=== PATIENT | male | born 1965 | race Caucasian/White ===

== ENCOUNTER 2019-12-18 07:26 | Outpatient (CLI) | payer OTHER, SELFPAY ==
--- NOTE | 2019-12-18 | ECHO_ITS ---
Patient Info Name: Cristi Hamilton Age: 54 years : 1965 Gender: Male Ht: 72 in Wt: 185 lbs BSA: 2.07 m2 HR: 48 bpm BP: 144 / 84 mmHg Technical Quality: Good Exam Date: 12/18/2019 8:02 AM Exam Location: [facility] Patient Status: Outpatient Admit Date: 12/18/2019 Staff Ordering Physician: Mukul Payan MD Head Inspector: Bill Rosas, AMANDA, RT Attending Provider: Mukul Payan MD Referring Physician: Schuyler SOLER; Exam Type: CA echo doppler color flow Study Info Indications I45.89 - Other specified conduction disorders Complete two-dimensional, color flow and Doppler transthoracic echocardiogram is performed. Summary 1. Left ventricular chamber dimension is normal. 2. Left ventricular systolic function is normal, estimated at 60-65%. 3. There is mildly increased left ventricular wall thickness. 4. The left ventricular diastolic function is normal. 5. E/e' 7 is not elevated. 6. Global longitudinal strain is normal at -17.4%. 7. There is mild mitral valve regurgitation. 8. There is mild tricuspid valve regurgitation. 9. No pulmonary hypertension, estimated pulmonary arterial systolic pressure is 29 mmHg. 10. Dilated inferior vena cava with >50% collapse upon inspiration consistent with elevated right atrial pressure, 10 mmHg. Left Ventricle E/e' 7 is not elevated. Global longitudinal strain is normal at -17.4%. Left ventricular chamber dimension is normal. Left ventricular systolic function is normal, estimated at 60-65%. There is mildly increased left ventricular wall thickness. The left ventricular diastolic function is normal. Right Ventricle Right ventricular chamber dimension is normal. Right ventricular systolic function is normal. Left Atria Left atrial chamber dimension is normal. Right Atria Right atrial chamber dimension is normal. Aortic Valve The aortic valve is trileaflet. There is no aortic valve stenosis. There is no aortic valve regurgitation. Pulmonic Valve There is no pulmonic regurgitation. Mitral Valve There is no mitral valve stenosis. There is mild mitral valve regurgitation. Tricuspid Valve There is mild tricuspid valve regurgitation. No pulmonary hypertension, estimated pulmonary arterial systolic pressure is 29 mmHg. Pericardium/Pleural There is no pericardial effusion. Inferior Vena Cava Dilated inferior vena cava with >50% collapse upon inspiration consistent with elevated right atrial pressure, 10 mmHg. Aorta The aortic root size at the sinus of Valsalva is normal. Left Ventricular Outflow Tract Name Value Normal LVOT 2D LVOT Diameter 2.1 cm LVOT Doppler LVOT Peak Gradient 5 mmHg LVOT Mean Gradient 2 mmHg LVOT VTI 23 cm LVOT VTI/AV VTI Ratio 0.9 LVOT Stroke Volume 82 ml LVOT CO 3.9 l/min LVOT CI 1.9 l/min/m2 Mitral Valve N
== END 2019-12-18 07:27 | disposition home or self-care (01) ==
PROVIDERS: PCP Internal Medicine; Visit Provider Internal Medicine
DX: I45.10 Unspecified right bundle-branch block (principal); I08.3 Combined rheumatic disorders of mitral, aortic and tricuspid valves
CPT/HCPCS: 93306

== ENCOUNTER 2019-12-20 07:25 | Outpatient (CLI) | payer OTHER, SELFPAY ==
--- NOTE | ~2019-12-20 | US_ITS ---
EXAMINATION: US abdomen limited DATE: 12/20/2019 07:56 INDICATION: Hepatic steatosis. TECHNIQUE: Multiple grayscale and Doppler ultrasound images of the abdomen were obtained. COMPARISON: Chest CT 08/12/2017 FINDINGS: The visualized portions of the head and body of the pancreas are normal. The liver is mariela l without focal lesion. No liver surface nodularity. There is normal flow in main portal vein. The ga llbladder is normal in size. No gallstones or gallbladder wall thickening. There was no sonographic M urphy sign. The common duct is normal and measures 2 mm. IMPRESSION: 1. Normal right upper quadrant ultrasound. Reviewed, dictated and finalized at location A. [employer]
== END 2019-12-20 07:26 | disposition home or self-care (01) ==
PROVIDERS: PCP Internal Medicine; Visit Provider Internal Medicine
DX: Z87.19 Personal history of other diseases of the digestive system (principal)
CPT/HCPCS: 76705

== ENCOUNTER 2022-11-13 14:49 | Emergency (ER) | payer OTHER, SELFPAY ==
--- NOTE | ~2022-11-13 | XR_ITS ---
EXAMINATION: XR chest 2V Exam Date/Time: 11/13/2022 18:45 [facility] HISTORY: cough NOTED HEMATURIA/PROSTATITIS Comparison: 04/17/2008. RESULT: Lines, tubes, and devices: None. Lungs and pleura: Low lung volumes with crowding, particularly in the lateral view. Cardiomediastinal silhouette: Stable. Other: No acute osseous or upper abdominal finding. IMPRESSION: No acute cardiopulmonary process. Reviewed, dictated and finalized at location K. [facility]
--- NOTE | ~2022-11-13 | CT_ITS ---
EXAMINATION: CT abdomen pelvis w con DATE: 11/13/2022 19:30 INDICATION: hematuria, dx with prostatitis, no symptom improve TECHNIQUE: Computed tomography (CT) of the abdomen and pelvis was performed with 100 mL Omnipaque-350 intravenous contrast. Automated exposure control and iterative reconstruction technique were employe d. The dose-length product was 908.36 mGy-cm. COMPARISON: None. FINDINGS: Lower thorax: Small hiatal hernia. Coronary artery calcifications. Dependent atelectasis, right great er than left. Liver: Normal. Biliary/Gallbladder: Gallbladder is normal. No bile duct dilation. Pancreas: No mass or duct dilation. Spleen: Normal. Adrenals:No mass. Kidneys: Bilateral hypodensities that are too small to characterize. Simple left midpole cyst. Mild b ilateral perinephric stranding. Mild bilateral pelviectasis. Otherwise, no hydronephrosis. Nonobstruc ting bilateral renal calculi. GI tract: No small or large bowel dilation. Normal appendix. Diverticulosis without diverticulitis. Mesentery/Peritoneum: No ascites, mass, or free air. Retroperitoneum: No mass. Atherosclerotic abdominal aortic and/or arterial calcifications. Pelvis: Bladder wall thickening. Prostatomegaly. Soft Tissues: Soft tissues and body wall unremarkable. Bones: No acute osseous finding. IMPRESSION: Esophagitis/gastritis. Bladder wall thickening which may be secondary to outlet compromise or cystiti s. Prostatomegaly. Reviewed, dictated and finalized at location K. [employer] IMPRESSION: Esophagitis/gastritis. Bladder wall thickening which may be secondary to outlet compromise or cystitis. Prostatomegaly.
[2022-11-13 15:03] VITALS: BP 156/73; PULSE 70; RESP 16; TEMP 36.6; O2SAT 98
--- NOTE | 2022-11-13 18:05 | ED.MALEGU ---
HPI - Male Genitourinary General Chief complaint: Urogenital-Male Stated complaint: flank pain Time Seen by Provider: 11/13/22 17:57 History of Present Illness HPI Narrative: 57-year-old male history of recently diagnosed prostatitis who is currently taking Cipro presents to the emergency room with dysuria and hematuria for 8 days. States symptoms have not improved. Was told by his PCP to come here for further evaluation for CT scan. Patient states he experiences prostatitis on multiple occasions, each time he is given ciprofloxacin. Patient also states that he has had a nonproductive cough for 4 weeks, has completed 2 courses of antibiotics and has not achieved any symptom improvement. States gets short of breath occasionally. Denies chest pain or difficulty breathing. Denies back pain, constipation difficulty with bowel movements. Related Data Home Medications Medication Instructions Recorded Confirmed aspirin 81 mg tablet,delayed 81 mg PO DAILY 12/06/19 05/26/22 release (Adult Low Dose Aspirin) omega-3 fatty acids 1,000 mg 1,000 mg PO BID 12/06/19 05/26/22 capsule (Fish Oil Concentrate) Allergies Allergy/AdvReac Type Severity Reaction Status Date / Time niacin Allergy Unknown Flushing Verified 11/13/22 22:31 Review of Systems Review of Systems: CONSTITUTIONAL: Denies fever, chills, or sweats. EYES: Denies visual changes, redness, or discharge. ENT: Denies rhinorrhea, congestion, sore throat, or otalgia. CARDIOVASCULAR: Denies chest pain, palpitations, or edema. RESPIRATORY: Reports cough GASTROINTESTINAL: Denies abdominal pain, nausea, vomiting, or diarrhea. GENITOURINARY: Reports dysuria and hematuria SKIN: Denies rash or itching. MUSCULOSKELETAL: Denies back pain, joint pain, or myalgia. NEUROLOGIC: Denies headache, numbness, dizziness, or weakness. PSYCHIATRIC: Denies anxiety or depression. [facility] Past Medical History Medical History Abnormal finding of blood chemistry, unspecified Anxiety Benign essential hypertension Blood glucose elevated BMI 25.0-25.9,adult BMI 26.0-26.9,adult BMI 27.0-27.9,adult BMI 28.0-28.9,adult Canker sores oral Elevated fasting glucose Elevated homocysteine Encounter for preventive health examination Encounter for routine adult health examination without abnormal findings Encounter for special screening examination for neoplasm of prostate Fatigue Gum inflammation Hearing loss History of fatty infiltration of liver Hx of skin malignancy Hyperlipidemia Hypersomnolence Light headed Mitral valve regurgitation On [facility] drug therapy HOLLIE (obstructive sleep apnea) Peripheral edema Preoperative clearance Prostate cancer screening RBBB (right bundle branch block) Rhinitis Sinus drainage SOB (shortness of breath) Suspected sleep apnea Unspecified diastolic (congestive) heart failure Viral syndrome Surgical History Surgical History S/P ear surgery Family History Family History Sibling Family history of Alzheimer's disease Acute myocardial infarction Patient's brother is in good health Mother Family history of renal failure Father Patient's father is in good health Other Family history of kidney disease Hypertension Social History Social History Smoking status: Never smoker Second hand tobacco smoke exposure: No Alcohol intake: never Exam Narrative: GENERAL: Well-appearing, well-nourished, no physical limitations, and in no acute distress. HEAD: Normocephalic, atraumatic. EYES: Conjunctivae normal, PERRLA and EOMI. CHEST: Clear to auscultation. No respiratory distress. No wheezes rales or rhonchi. HEART: Regular rate and rhythm. No murmur heard. Normal peripheral pulses. ABDOMEN: Soft, nontender, nondistended, normal a
[2022-11-13 18:20] VITALS: BP 122/86; PULSE 80; RESP 16; O2SAT 98
[2022-11-13 19:19] LABS: Estimated CRCL calculation 70 ml/min; Estimated Glomerular Filt Rate > 60
[2022-11-13 21:57] VITALS: BP 143/76; PULSE 77; RESP 16; O2SAT 98
[2022-11-13 22:34] LABS: Basophils Absolute Auto 0.1 K/mm3 (0.0-0.1); Basophils Percent Auto 0.7 % (0.2-1.2); Eosinophils Absolute Auto 0.1 K/mm3 (0-0.3); Eosinophils Percent Auto 1.8 % (0-4.4); Hematocrit 39.7 % (42.0-52.0); Hemoglobin 13.7 g/dL (14.0-18.0); Immature Granulocyte Absolute 0.19 K/mm3 (0.00-0.031); Immature Granulocyte Percent A 2.6 % (0-0.5); Lymphocytes Absolute Auto 1.87 K/mm3 (0.9-3.2); Mean Corpuscular HGB Conc 34.5 g/dl (32-36); Mean Corpuscular Hemoglobin 31.1 pg (26-34); Mean Corpuscular Volume 90.2 fl (80-100); Monocytes Absolute Auto 0.6 K/mm3 (0.1-0.6); Monocytes Percent Auto 8.6 % (2.6-8.5); Neutrophils Absolute Auto 4.3 K/mm3 (1.3-6.7); Neutrophils Percent Auto 60.3 % (45.5-73.1); Platelet Count Result 250 k/mm3 (150-375); Red Cell Distribution Width 12.6 % (11.5-14.5); White Blood Count 7.2 K/mm3 (4.5-10.0)
[2022-11-13 22:48] LABS: Appearance Urine Clear (Clear); Bacteria Urine Trace /hpf; Bilirubin Urine Negative (Negative); Blood Urine 2+ (Negative); Color Urine Yellow (Yellow); Glucose Urine UA Negative (Negative); Ketones Urine Negative (Negative); Leukocyte Esterase Ur Negative LEU/UL (Negative); Nitrate Urine Negative (Negative); Protein Urine Negative (Negative); Specific Grav Ur <= 1.005 (1.001-1.035); Squamous Epithelial Cell Urine Rare /hpf (Few); Urobilinogen Urine 0.2 mg/dL (<2.0); WBC Urine 31-50 /hpf; pH Urine 5.5 (5.0-9.0)
[2022-11-13 22:49] LABS: Add Urine Microscopic? YES
[2022-11-13 22:53] LABS: Alanine Aminotransferase 42 U/L (6-50); Albumin Level 4.1 g/dL (3.5-5.1); Alkaline Phosphatase 70 U/L (38-126); Anion Gap 8 mmol/L (8-16); Aspartate Amino Transferase 27 U/L (17-59); Bilirubin,Total 0.3 mg/dL (0.2-1.3); Blood Urea Nitrogen 18 mg/dL (9-20); Calcium 8.8 mg/dL (8.4-10.2); Carbon Dioxide 28 mmol/L (22-30); Chloride 101 mmol/L (98-107); Estimated CRCL calculation 85 ml/min; Estimated Glomerular Filt Rate > 60; Glucose 140 mg/dL (65-110); Potassium 3.5 mmol/L (3.4-5.0); Sodium 137 mmol/L (137-145)
[2022-11-13 23:53] VITALS: RESP 20
== END 2022-11-13 23:50 | disposition home or self-care (01) ==
PROVIDERS: Physician Assistant; Emergency Provider Nurse Practitioner Family; PCP Internal Medicine
DX: N41.0 Acute prostatitis (principal); R05.9 Cough, unspecified; E78.5 Hyperlipidemia, unspecified; I50.30 Unspecified diastolic (congestive) heart failure; I11.0 Hypertensive heart disease with heart failure; G47.33 Obstructive sleep apnea (adult) (pediatric); Z79.82 Long term (current) use of aspirin; K20.90 Esophagitis, unspecified without bleeding; K29.70 Gastritis, unspecified, without bleeding
CPT/HCPCS: 71046; 74177; 80053; 81001; 85025; 87077; 87086; 87186; 99284; Q9967

== ENCOUNTER → 2023-07-01 09:45 | Outpatient (CLI) | payer OTHER, SELFPAY ==
--- NOTE | ~2023-07-01 | US_ITS ---
Limited Abdominal Sonogram: Real-time sonographic imaging of the right upper quadrant was performed. Clinical History: Fatty liver Findings: The liver appears echogenic, with no evidence of mass lesion or bile duct dilatation. Main portal vein demonstrates normal direction of flow. The gallbladder is well distended, and appears no rmal with no evidence of gallstone or wall thickening. The common bile duct measures 4 mm. The visua lized pancreas, aorta, and IVC are unremarkable. Impression: Diffuse fatty infiltration of liver. Reviewed, dictated and finalized at location M. Impression: Diffuse fatty infiltration of liver.
== END ==
PROVIDERS: PCP Internal Medicine; Visit Provider Internal Medicine
DX: K76.0 Fatty (change of) liver, not elsewhere classified (principal)
CPT/HCPCS: 76705

== ENCOUNTER 2024-01-09 08:22 | Outpatient (CLI) | payer OTHER, SELFPAY ==
--- NOTE | ~2024-01-09 | XR_ITS ---
XR chest 2V DATE: 01/09/2024 08:51 INDICATION: Cough, congestion for 3 weeks TECHNIQUE: PA and lateral views COMPARISON: 11/13/2022 PA and lateral chest FINDINGS: Normal heart size. No hilar or mediastinal enlargement. No pulmonary infiltrate or consolid ation, pleural effusion or pulmonary vascular congestion or pneumothorax. Mild thoracic dextroscoliosis. IMPRESSION: No active cardiopulmonary disease Reviewed, dictated and finalized at location B.
--- NOTE | ~2024-01-09 | XR_ITS ---
XR sinus min 3V DATE: 01/09/2024 08:51 INDICATION: Cough, congestion for 3 weeks TECHNIQUE: jabari Loyd, lateral, submental vertical views COMPARISON: None FINDINGS: Normal development and aeration of the paranasal sinuses. No paranasal sinus mucoperiosteal thickening, opacification or fluid levels are noted. The mastoid air cells appear unremarkable. IMPRESSION: Negative Reviewed, dictated and finalized at location B. IMPRESSION: Negative
[2024-01-09 09:13] LABS: Basophils Percent Auto 0.4 % (0.2-1.2); Eosinophils Absolute Auto 0.2 K/mm3 (0-0.3); Eosinophils Percent Auto 3.1 % (0-4.4); Hematocrit 39.5 % (42.0-52.0); Hemoglobin 13.6 g/dL (14.0-18.0); Immature Granulocyte Absolute 0.02 K/mm3 (0.00-0.031); Immature Granulocyte Percent A 0.3 % (0-0.5); Lymphocytes Absolute Auto 0.95 K/mm3 (0.9-3.2); Mean Corpuscular HGB Conc 34.4 g/dl (32-36); Mean Corpuscular Volume 92.9 fl (80-100); Monocytes Absolute Auto 0.6 K/mm3 (0.1-0.6); Monocytes Percent Auto 8.7 % (2.6-8.5); Neutrophils Percent Auto 73.5 % (45.5-73.1); Platelet Count Result 155 k/mm3 (150-375); Red Blood Count 4.25 M/mm3 (4.6-6.20); Red Cell Distribution Width 13.2 % (11.5-14.5); White Blood Count 6.8 K/mm3 (4.5-10.0)
== END 2024-01-09 08:23 | disposition home or self-care (01) ==
LOC: ANHIMG 08:24
PROVIDERS: PCP Internal Medicine; Visit Provider Internal Medicine
DX: R05.9 Cough, unspecified (principal); R50.9 Fever, unspecified
CPT/HCPCS: 36415; 70220; 71046; 85025

== ENCOUNTER 2024-01-23 15:38 | Outpatient (CLI) | payer OTHER, SELFPAY ==
--- NOTE | ~2024-01-23 | CT_ITS ---
EXAMINATION: CT sinus wo con DATE: 01/23/2024 15:56 INDICATION: Acute sinusitis TECHNIQUE: Computed tomography (CT) of the paranasal sinuses was performed without intravenous contra st. The dose-length product was 253.47 mGy-cm. COMPARISON: Sinus series dated 01/09/2024 FINDINGS: There is mucosal thickening of the ethmoid, frontal, sphenoid and maxillary sinuses. No sig nificant mucoperiosteal reaction. Leftward nasal septal deviation. Ostiomeatal units are occluded by soft tissue. There is a right mastoid effusion. Left mastoid air cells are pneumatized. IMPRESSION: 1. Pansinusitis. 2: Right mastoid effusion. Reviewed, dictated and finalized at location B.
== END 2024-01-23 15:39 ==
PROVIDERS: PCP Internal Medicine; Visit Provider Internal Medicine
DX: J32.9 Chronic sinusitis, unspecified (principal); J34.89 Other specified disorders of nose and nasal sinuses
CPT/HCPCS: 70486

== ENCOUNTER 2025-08-13 09:33 | Outpatient (CLI) | payer OTHER, SELFPAY ==
--- NOTE | ~2025-08-13 | US_ITS ---
US abdomen limited INDICATION: Fatty liver PROCEDURE: Realtime right upper abdominal ultrasound. COMPARISON: Ultrasound dated 07/01/2023 FINDINGS: Pancreas is obscured by bowel gas limiting evaluation. Liver echotexture is diffusely increased, consistent with fatty infiltration. There is normal directional flow in the portal vein. There is adenomyomatosis of the gallbladder. No gallstones or gallbladder wall thickening. Common bile duct measures 5 mm. No sonographic Rosas's sign. IMPRESSION: 1: Fatty infiltration of the liver. 2: Gallbladder adenomyomatosis. Reviewed, dictated and finalized at location O.
== END 2025-08-13 09:34 | disposition home or self-care (01) ==
LOC: MICIMG 09:34
PROVIDERS: PCP Internal Medicine; Visit Provider Internal Medicine
DX: K82.8 Other specified diseases of gallbladder (principal); K76.0 Fatty (change of) liver, not elsewhere classified
CPT/HCPCS: 76705